=== PATIENT | male | born 1985 | race Two or more races ===

== ENCOUNTER 2019-01-24 11:08 | Emergency (ER) | payer SELFPAY ==
[~2019-01-24] VITALS: Ht 180.3 cm; Wt 99.8 kg
[2019-01-24 11:18] VITALS: BP 130/85
== END 2019-01-24 12:13 | disposition home or self-care (01) ==
LOC: ER 11:11
DX: S05.02XA Injury of conjunctiva and corneal abrasion without foreign body, left eye, initial encounter (principal); F17.200 Nicotine dependence, unspecified, uncomplicated; W22.8XXA Striking against or struck by other objects, initial encounter; Y93.89 Activity, other specified; Y92.89 Other specified places as the place of occurrence of the external cause; Y99.8 Other external cause status